=== PATIENT | female | born 1970 | race African-American/Black ===

== ENCOUNTER 2017-07-10 18:33 | Emergency (ER) | payer MEDICAID ==
[2017-07-10 18:53] VITALS: BP 145/81
[2017-07-10] MEDS ORDERED: LORazepam 1 MG Tab PO ONE (18:57)
--- NOTE | 2017-07-10 19:00 | EDM.PDOC ---
ED HPI GENERAL MEDICAL PROBLEM - General Chief Complaint: General Stated Complaint: PT NAUSEA Time Seen by Provider: 07/10/17 18:57 Source of Information: Reports: Patient History Limitations: Reports: No Limitations - History of Present Illness INITIAL COMMENTS - FREE TEXT/NARRATIVE: History of present illness: [47yr old female comes in complaining of feelings of anxiety and feeling overwhelmed to the point of being nauseous. Patient indicates that she had a history of anxiety before her she had a brief run of Zoloft and Klonopin for a period of a few months but she was interested she did not continue to take the meds or pursue further follow-up. Patient indicates that she feels no stress, and or any concerns that would be making her feel this way. Patient denies having any fear and/or issues of abuse. Patient indicates that she feels emotional, overwhelmed and tearful for no apparent reason.] Review of systems: As per history of present illness and below otherwise all systems reviewed and negative. Past medical history: As per history of present illness and as reviewed below otherwise noncontributory. Surgical history: As per history of present illness and as reviewed below otherwise noncontributory. Social history: No reported history of drug or alcohol abuse. Family history: As per history of present illness and as reviewed below otherwise noncontributory. Physical exam: HEENT: Atraumatic, normocephalic, pupils reactive, negative for conjunctival pallor or scleral icterus, mucous membranes moist, throat clear, neck supple, nontender, trachea midline. Lungs: Clear to auscultation, breath sounds equal bilaterally, chest nontender. Heart: S1S2, regular, negative for clicks, rubs, or JVD. Abdomen: Soft, nondistended, nontender. Negative for masses or hepatosplenomegaly. Negative for costovertebral tenderness. Pelvis: Stable nontender. Genitourinary: Deferred. Rectal: Deferred. Extremities: Atraumatic, negative for cords or calf pain. Neurovascular unremarkable. Neuro: Awake, alert, oriented. Cranial nerves II through XII unremarkable. Cerebellum unremarkable. Motor and sensory unremarkable throughout. Exam nonfocal. Discussed with patient the need for follow-up and management by PCP with concerns of depression and/or anxiety. Diagnostics: [] Therapeutics: [Ativan 1 mg] Impression: [Anxiety ] Plan: [Follow-up with PCP] Definitive disposition and diagnosis as appropriate pending reevaluation and review of above. 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 Below) Other OB/BYN History: tubal ligation Psychiatric History: Reports: Anxiety Endocrine/Metabolic History: Reports: Hypoparathyroidism - Infectious Disease History Infectious Disease History: Reports: Chicken Pox Social & Family History - Family History Family Medical History: Noncontributory - Tobacco Use Smoking Status *Q: Never Smoker - Caffeine Use Caffeine Use: Reports: Coffee - Recreational Drug Use Recreational Drug Use: No ED ROS GENERAL - Review of Systems Review Of Systems: See Below (See history of present illness) ED EXAM, GENERAL - Physical Exam Exam: See Below (History of present illness) Course - Vital Signs Last Recorded V/S: Last Vital Signs Temp 36.4 C 07/10/17 18:51 Pulse 78 07/10/17 18:51 Resp 17 07/10/17 18:51 BP 145/81 H 07/10/17 18:51 Pulse Ox 98 07/10/17 18:51 - Orders/Labs/Meds Meds: Medications Discontinued Medications Generic Name Dose Route Start Last Admin Trade Name Freq PRN Reason Stop Dose Admin Lorazepam 1 mg 07/10/17 18:57 07/10/17 19:17 Ativan PO 07/10/17 18:58 1 mg ONETIME ONE Administration Departure - Departure Time of Disposition: 19:27 Disposition: Home, Self-Care 01 Condition: Good Clinical Impression: Anxiety - Discharge Information Referrals: PCP,None [Primary Care Provider] - Forms: ED Department Discharge Additional Instructions: The following information is given to patients seen in the emergency department who are being discharged to home. This information is to outline your options for follow-up care. We provide all patients seen in our emergency department with a follow-up referral. The need for follow-up, as well as the timing and circumstances, are variable depending upon the specifics of your emergency department visit. If you don't have a primary care physician on staff, we will provide you with a referral. We always advise you to contact your personal physician following an emergency department visit to inform them of the circumstance of the visit and for follow-up with them and/or the need for any referrals to a consulting specialist. The emergency department will also refer you to a specialist when appropriate. This referral assures that you have the opportunity for follow-up care with a specialist. All of these measure are taken in an effort to provide you with optimal care, which includes your follow-up. Under all circumstances we always encourage you to contact your private physician who remains a resource for coordinating your care. When calling for follow-up care, please make the office aware that this follow-up is from your recent emergency room visit. If for any reason you are refused follow-up, please contact the [facility] Emergency Department at and asked to speak to the emergency department charge nurse. Take medication as directed Follow-up with PCP once 2 days return to ED as needed as discussed
== END 2017-07-10 19:40 | disposition home or self-care (01) ==
LOC: MW.ED 18:33
DX: F41.9 Anxiety disorder, unspecified (principal); Z88.5 Allergy status to narcotic agent
CPT/HCPCS: 99282; A9270

== ENCOUNTER 2018-10-30 11:36 | Emergency (ER) | payer MEDICAID ==
--- NOTE | 2018-10-30 11:51 | EDM.PDOC ---
ED HPI GENERAL MEDICAL PROBLEM - General Chief Complaint: Genitourinary Problem Stated Complaint: UTI Time Seen by Provider: 10/30/18 11:50 Source of Information: Reports: Patient History Limitations: Reports: No Limitations - History of Present Illness INITIAL COMMENTS - FREE TEXT/NARRATIVE: History of present illness: []She has had 3 day history of burning when she urinates, and discharge. She may have an STD but also also had urinary tract infections that feel the same. Review of systems: As per history of present illness and below otherwise all systems reviewed and negative. Past medical history: As per history of present illness and as reviewed below otherwise noncontributory. Surgical history: As per history of present illness and as reviewed below otherwise noncontributory. Social history: No reported history of drug or alcohol abuse. Family history: As per history of present illness and as reviewed below otherwise noncontributory. Physical exam: General: Well developed, well nourished in NAD HEENT: Atraumatic, normocephalic, pupils reactive, negative for conjunctival pallor or scleral icterus, mucous membranes moist, throat clear, neck supple, nontender, trachea midline. Lungs: Clear to auscultation, breath sounds equal bilaterally, chest nontender. Heart: S1S2, regular, negative for clicks, rubs, or JVD. Abdomen: NABS, Soft, nondistended, nontender. Negative for masses or hepatosplenomegaly. Negative for costovertebral tenderness. Pelvis: Stable nontender. Genitourinary: Deferred. Rectal: Deferred. Extremities: Atraumatic, negative for cords or calf pain. Neurovascular unremarkable. Neuro: Awake, alert, oriented. Cranial nerves II through XII unremarkable. Cerebellum unremarkable. Motor and sensory unremarkable throughout. Exam nonfocal. Skin:warm and dry Diagnostics: UA, hCG, GC, chlamydia culture sent Therapeutics: Ceftriaxone, Zithromax ED Course: Unremarkable Impression: UTIs Prescriptions: Nitrofurantoin Plan: Follow-up women's health. Definitive disposition and diagnosis as appropriate pending reevaluation and review of above. 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 ED EXAM, RENAL/ - Physical Exam Exam: See Below (See history of present illness) Course - Vital Signs Last Recorded V/S: Last Vital Signs Temp 96.7 F 10/30/18 11:50 Pulse 70 10/30/18 11:50 Resp 18 10/30/18 11:50 BP 147/89 H 10/30/18 11:50 Pulse Ox 99 10/30/18 11:50 - Orders/Labs/Meds Orders: Active Orders 24 hr Category Date Time Status CHLAMYDIA AND GONORRHEA BY TMA Stat Lab 10/30/18 12:17 Received Labs: Laboratory Tests 10/30/18 10/30/18 Range/Units 12:06 12:06 Urine Color YELLOW Urine Appearance SLT CLOUDY Urine pH 6.0 (5.0-8.0) Ur Specific [place] 1.010 (1.001-1.035) Urine Protein 30 H (NEGATIVE) mg/dL Urine Glucose (UA) NEGATIVE (NEGATIVE) mg/dL Urine Ketones NEGATIVE (NEGATIVE) mg/dL Urine Occult Blood LARGE H (NEGATIVE) Urine Nitrite NEGATIVE (NEGATIVE) Urine Bilirubin NEGATIVE (NEGATIVE) Urine Urobilinogen 0.2 (<2.0) EU/dL Ur Leukocyte Esterase LARGE H (NEGATIVE) Urine RBC 40-60 (0-2/HPF) Urine WBC 50-75 (0-5/HPF) Ur Epithelial Cells FEW (NONE-FEW) Urine Bacteria FEW (NEGATIVE) Urine HCG, Qual NEGATIVE (NEGATIVE) Meds: Medications Discontinued Medications Generic Name Dose Route Start Last Admin Trade Name Freq PRN Reason Stop Dose Admin Azithromycin 1,000 mg 10/30/18 12:12 Zithromax PO 10/30/18 12:13 Q24H ONE Ceftriaxone Sodium 500 mg/ 1 mls @ 1 mls/sec 10/30/18 12:12 Lidocaine HCl IM 10/30/18 12:13 ONETIME ONE Departure - Departure Time of Disposition: 12:39 Disposition: Home, Self-Care 01 Condition: Good Clinical Impression: UTI (urinary tract infection) Qualifiers: Urinary tract infection type: site unspecified Hematuria presence: with hematuria Qualified Code(s): N39.0 - Urinary tract infection, site not specified - Discharge Information *PRESCRIPTION DRUG MONITORING PROGRAM REVIEWED*: No *COPY OF PRESCRIPTION DRUG MONITORING REPORT IN PATIENT TED: No Prescriptions: Nitrofurantoin Macrocrystal [Macrodantin] 100 mg PO BID #14 capsule Referrals: PCP,Unknown [Primary Care Provider] - Forms: ED Department Discharge Additional Instructions: The following information is given to patients seen in the emergency department who are being discharged to home. This information is to outline your options for follow-up care. We provide all patients seen in our emergency department with a follow-up referral. The need for follow-up, as well as the timing and circumstances, are variable depending upon the specifics of your emergency department visit. If you don't have a primary care physician on staff, we will provide you with a referral. We always advise you to contact your personal physician following an emergency department visit to inform them of the circumstance of the visit and for follow-up with them and/or the need for any referrals to a consulting specialist. The emergency department will also refer you to a specialist when appropriate. This referral assures that you have the opportunity for follow-up care with a specialist. All of these measure are taken in an effort to provide you with optimal care, which includes your follow-up. Under all circumstances we always encourage you to contact your private physician who remains a resource for coordinating your care. When calling for follow-up care, please make the office aware that this follow-up is from your recent emergency room visit. If for any reason you are refused follow-up, please contact the [facility] Emergency Department at and asked to speak to the emergency department charge nurse. Take meds as directed, increase fluids, follow-up with women's health. [facility] Primary Care - Women's Health [address] [place] [id number] - My Orders Last 24 Hours: My Active Orders 10/30/18 12:17 CHLAMYDIA AND GONORRHEA BY TMA Stat - Assessment/Plan Last 24 Hours: My Active Orders 10/30/18 12:17 CHLAMYDIA AND GONORRHEA BY TMA Stat
[2018-10-30 11:52] VITALS: BP 147/89
[2018-10-30] MEDS ORDERED: Azithromycin 250 MG Tab PO ONE (12:12)
[2018-10-30] MEDS ORDERED: cefTRIAXone 500 MG in Lidocaine 1% 1 ML IM ONE (12:12)
== END 2018-10-30 12:57 | disposition home or self-care (01) ==
LOC: MW.ED 11:36
DX: N39.0 Urinary tract infection, site not specified (principal); Z88.5 Allergy status to narcotic agent; Z79.899 Other long term (current) drug therapy
CPT/HCPCS: 81001; 81025; 87491; 87591; 96372; 99283; A9270; J0696

== ENCOUNTER 2018-12-31 18:00 | Emergency (ER) | payer MEDICAID ==
--- NOTE | 2018-12-31 18:39 | EDM.PDOC ---
ED HPI GENERAL MEDICAL PROBLEM - General Chief Complaint: Genitourinary Problem Stated Complaint: FREQUENT URINATION Time Seen by Provider: 12/31/18 18:17 Source of Information: Reports: Patient History Limitations: Reports: No Limitations - History of Present Illness INITIAL COMMENTS - FREE TEXT/NARRATIVE: HISTORY AND PHYSICAL: History of present illness: Patient is a 48-year-old female presents to the ED today with concern of burning with urination, urinary frequency, and vaginal discharge x 4 days. Patient states she is concerned about sexual transmitted infections as she has been having unprotected sex with a recent partner. Patient states that the symptoms she expresses have developed since having intercourse with him. Patient states that he is from [place] and he has not made a real clear on his sexual history with her. Patient states she is also noticed weird rashes out of appeared all over her body. She states the rashes are gone today but that they have propped up in different areas she thought this was unusual. Patient states that a few days ago she also had a fever of 100 but has not had a fever since. Patient is concerned because she says it does burn when she urinates. She has not taken anything for her pain or discomfort. Patient denies chest pain, shortness of breath, or cough. Denies headache, neck stiff ness, change in vision, syncope, or near syncope. Denies nausea, vomiting , abdominal pain, diarrhea, constipation. Has not noted any blood in urine or stool. Patient has been eating and drinking appropriately. Patient denies any health history. Review of systems: As per history of present illness and below otherwise all systems reviewed and negative. Past medical history: As per history of present illness and as reviewed below otherwise noncontributory. Surgical history: As per history of present illness and as reviewed below otherwise noncontributory. Social history: See social history for further information Family history: As per history of present illness and as reviewed below otherwise noncontributory. Physical exam: General: Patient is alert, oriented, and in no acute distress. Patient sitting comfortably on exam table. HEENT: Atraumatic, normocephalic, pupils equal and reactive bilaterally, negative for conjunctival pallor or scleral icterus, mucous membranes moist, TMs normal bilaterally, throat clear, neck supple, nontender, trachea midline. No drooling or trismus noted. No meningeal signs. No hot potato voice noted. Lungs: Clear to auscultation, breath sounds equal bilaterally, chest nontender. Heart: S1S2, regular rate and rhythm without overt murmur Abdomen: Soft, nondistended, nontender. Negative for masses or hepatosplenomegaly. Negative for costovertebral tenderness. Pelvis: Stable nontender. Genitourinary: External genitalia grossly unremarkable. Vaginal vault does have a moderate amount of whitish discharge. Negative cervical motion tenderness. Rectal: Deferred. Skin: Intact, warm, dry. No lesions or rashes noted. Extremities: Atraumatic, negative for cords or calf pain. Neurovascular unremarkable. Neuro: Awake, alert, oriented. Cranial nerves II through XII unremarkable. Cerebellum unremarkable. Motor and sensory unremarkable throughout. Exam nonfocal. Notes: Discussed with patient that if she desires a full STD workup to see her primary care provider or [facility] for this testing. Also discussed the importance refraining from intercourse with concern partner until all testing has returned and wall partner has also been treated. Discussed the importance for follow-up with the primary care provider. Supportive care measures were reviewed and discussed. Voices understanding and is agreeable to plan of care. Denies any further questions or concerns at this time. Diagnostics: UA, gonorrhea and chlamydia, RPR, affirm, Therapeutics: Rocephin Prescription: Azithromycin, Macrobid, Metronidazole suppository Impression: Urinary Tract Infection Bacterial Vaginosis High risk heterosexual behavior Plan: 1. Take medication as prescribed. You can alternate ibuprofen and Tylenol as directed for pain and discomfort. 2. Follow-up with your primary care provider as discussed. 3. Return to the ED as needed and as discussed. Definitive disposition and diagnosis as appropriate pending reevaluation and review of above. urinary Pain Score (Numeric/FACES): 8 - Related Data Allergies Allergy/AdvReac Type Severity Reaction Status Date / Time codeine Allergy Rash Verified 12/31/18 18:21 Home Meds: Home Meds Levothyroxine [Synthroid] 50 mcg PO ACBREAKFAST 06/23/16 [History] Azithromycin 1 gm PO ONETIME 1 Days #1 powder 12/31/18 [Rx] Nitrofurantoin Monohyd/M-Cryst [Macrobid 100 mg Capsule] 100 mg PO BID 5 Days # 10 capsule 12/31/18 [Rx] Past Medical History - Past Health History Medical/Surgical History: Denies Medical/Surgical History Cardiovascular History: Reports: None Respiratory History: Reports: None Gastrointestinal History: Reports: Other (See Below) Other Gastrointestinal History: gallstones 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 Neurological History: Reports: None Psychiatric History: Reports: Anxiety Endocrine/Metabolic History: Reports: Hypoparathyroidism - Infectious Disease History Infectious Disease History: Reports: Chicken Pox - Past Surgical History GI Surgical History: Reports: Cholecystectomy Social & Family History - Family History Family Medical History: Noncontributory - Tobacco Use Smoking Status *Q: Never Smoker - Caffeine Use Caffeine Use: Reports: Coffee - Recreational Drug Use Recreational Drug Use: No ED ROS GENERAL - Review of Systems Review Of Systems: ROS reveals no pertinent complaints other than HPI. ED EXAM, RENAL/ - Physical Exam Exam: See Below (See dictation) Course - Vital Signs Last Recorded V/S: Last Vital Signs Temp 36.1 C 12/31/18 18:22 Pulse 66 12/31/18 21:27 Resp 18 12/31/18 21:27 BP 155/88 H 12/31/18 21:27 Pulse Ox 98 12/31/18 21:27 - Orders/Labs/Meds Orders: Active Orders 24 hr Category Date Time Status CHLAMYDIA AND GONORRHEA BY TMA Stat Lab 12/31/18 18:27 Received CHLAMYDIA AND GONORRHEA BY TMA Stat Lab 12/31/18 19:00 Received CULTURE URINE [RM] Stat Lab 12/31/18 18:27 Received RAPID PLASMA REAGIN, QUANT [REF] Stat Lab 12/31/18 18:58 Received Labs: Laboratory Tests 12/31/18 12/31/18 Range/Units 18:27 19:00 Urine Color YELLOW Urine Appearance SLT CLOUDY Urine pH 6.0 (5.0-8.0) Ur Specific [place] <= 1.005 (1.001-1.035) Urine Protein NEGATIVE (NEGATIVE) mg/dL Urine Glucose (UA) NEGATIVE (NEGATIVE) mg/dL Urine Ketones NEGATIVE (NEGATIVE) mg/dL Urine Occult Blood SMALL H (NEGATIVE) Urine Nitrite NEGATIVE (NEGATIVE) Urine Bilirubin NEGATIVE (NEGATIVE) Urine Urobilinogen 0.2 (<2.0) EU/dL Ur Leukocyte Esterase SMALL H (NEGATIVE) Urine RBC 0-2 (0-2/HPF) Urine WBC 8-10 (0-5/HPF) Ur Epithelial Cells FEW (NONE-FEW) Urine Bacteria RARE (NEGATIVE) Brianda species DNA NEGATIVE (NEGATIVE) Gardnerella DNA Probe POSITIVE H (NEGATIVE) Trichomonas DNA Probe NEGATIVE (NEGATIVE) Meds: Medications Discontinued Medications Generic Name Dose Route Start Last Admin Trade Name Freq PRN Reason Stop Dose Admin Ceftriaxone Sodium 250 mg/ 1 mls @ 1 mls/sec 12/31/18 19:42 12/31/18 20:02 Lidocaine HCl IM 12/31/18 19:43 1 mls/sec ONETIME ONE Administration Departure - Departure Time of Disposition: 21:11 Disposition: Home, Self-Care 01 Clinical Impression: Bacterial vaginosis Urinary tract infection Qualifiers: Urinary tract infection type: site unspecified Hematuria presence: with hematuria Qualified Code(s): N39.0 - Urinary tract infection, site not specified High risk sexual behavior Qualifiers: High risk sexual behavior type: heterosexual Qualified Code(s): Z72.51 - High risk heterosexual behavior - Discharge Information Prescriptions: Azithromycin 1 gm PO ONETIME 1 Days #1 powder Nitrofurantoin Monohyd/M-Cryst [Macrobid 100 mg Capsule] 100 mg PO BID 5 Days # 10 capsule Instructions: Urinary Tract Infection, Adult, [id number], Bacterial Vaginosis , [id number], Safe Sex Referrals: Nazia Wallace NP [Primary Care Provider] - Forms: ED Department Discharge Additional Instructions: The following information is given to patients seen in the emergency department who are being discharged to home. This information is to outline your options for follow-up care. We provide all patients seen in our emergency department with a follow-up referral. The need for follow-up, as well as the timing and circumstances, are variable depending upon the specifics of your emergency department visit. If you don't have a primary care physician on staff, we will provide you with a referral. We always advise you to contact your personal physician following an emergency department visit to inform them of the circumstance of the visit and for follow-up with them and/or the need for any referrals to a consulting specialist. The emergency department will also refer you to a specialist when appropriate. This referral assures that you have the opportunity for follow-up care with a specialist. All of these measure are taken in an effort to provide you with optimal care, which includes your follow-up. Under all circumstances we always encourage you to contact your private physician who remains a resource for coordinating your care. When calling for follow-up care, please make the office aware that this follow-up is from your recent emergency room visit. If for any reason you are refused follow-up, please contact the [facility] Emergency Department at and asked to speak to the emergency department charge nurse. [facility] Primary Care [address] [place] [phone] [facility] [address] [place] [phone] 1. Take medication as prescribed. You can alternate ibuprofen and Tylenol as directed for pain and discomfort. 2. Follow-up with your primary care provider as discussed. 3. Return to the ED as needed and as discussed. - My Orders Last 24 Hours: My Active Orders 12/31/18 18:27 CHLAMYDIA AND GONORRHEA BY TMA Stat CULTURE URINE [RM] Stat 12/31/18 18:58 RAPID PLASMA REAGIN, QUANT [REF] Stat 12/31/18 19:00 CHLAMYDIA AND GONORRHEA BY TMA Stat - Assessment/Plan Last 24 Hours: My Active Orders 12/31/18 18:27 CHLAMYDIA AND GONORRHEA BY TMA Stat CULTURE URINE [RM] Stat 12/31/18 18:58 RAPID PLASMA REAGIN, QUANT [REF] Stat 12/31/18 19:00 CHLAMYDIA AND GONORRHEA BY TMA Stat
[2018-12-31] MEDS ORDERED: cefTRIAXone 250 MG in Lidocaine 1% 1 ML IM ONE (19:42)
[2018-12-31 21:27] VITALS: BP 155/88
== END 2018-12-31 21:28 | disposition home or self-care (01) ==
LOC: MW.ED 18:00
DX: N76.0 Acute vaginitis (principal); N39.0 Urinary tract infection, site not specified; E20.9 Hypoparathyroidism, unspecified; F41.9 Anxiety disorder, unspecified; Z72.51 High risk heterosexual behavior; Z88.5 Allergy status to narcotic agent; Z79.899 Other long term (current) drug therapy
CPT/HCPCS: 81001; 86593; 87086; 87480; 87491; 87510; 87591; 87660; 96372; 99283; J0696; J2001

== ENCOUNTER 2019-03-01 15:57 | Emergency (ER) | payer MEDICAID ==
--- NOTE | 2019-03-01 16:06 | EDM.PDOC ---
ED HPI GENERAL MEDICAL PROBLEM - General Chief Complaint: Genitourinary Problem Stated Complaint: ITCHING AN PAIN LWR PRT Time Seen by Provider: 03/01/19 15:59 Source of Information: Reports: Patient History Limitations: Reports: No Limitations - History of Present Illness INITIAL COMMENTS - FREE TEXT/NARRATIVE: HISTORY AND PHYSICAL: History of present illness: Patient is a 49-year-old female who presents to the emergency room with complaints of vaginal discharge and external irritation. Patient was seen in the ER on 12/2018 for these symptoms. Patient did test positive for Gardnerella and UTI. Her gonorrhea and chlamydia send out screenings were negative. She was treated with azithromycin and Rocephin prophylactically. 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 She thought that the antibiotic she received while she was here in the emergency room would treat her symptoms. Since her last ER visit she states that the vaginal discharge has not improved. Pain to the external genitalia when close are pressed up tight against her. Also experiencing some pain with sexual intercourse. She states she is in a monogamous relationship and has had no new partner since her last evaluation. Patient denies any fever, chills, headache, change in vision, syncope or near syncope. Denies any chest pain, back pain, shortness of breath or cough. Denies any abdominal pain, nausea, vomiting, diarrhea, constipation or dysuria. Has not noted any blood in urine or stool. Patient has been eating and drinking appropriately. Review of systems: As per history of present illness and below otherwise all systems reviewed and negative. Past medical history: As per history of present illness and as reviewed below otherwise noncontributory. Surgical history: As per history of present illness and as reviewed below otherwise noncontributory. Social history: See social history for further information Family history: As per history of present illness and as reviewed below otherwise noncontributory. Physical exam: General: Well-developed and well-nourished 49-year-old -[place] female. Alert and oriented. Nontoxic appearing and in no acute distress. HEENT: Atraumatic, normocephalic, pupils equal and reactive bilaterally, negative for conjunctival pallor or scleral icterus, mucous membranes moist, TMs normal bilaterally, throat clear, neck supple, nontender, trachea midline. No drooling or trismus noted. No meningeal signs. No hot potato voice noted. Lungs: Clear to auscultation, breath sounds equal bilaterally, chest nontender. Heart: S1S2, regular rate and rhythm without overt murmur Abdomen: Soft, nondistended, nontender. Negative for masses or hepatosplenomegaly. Negative for costovertebral tenderness. Pelvis: Stable nontender. Genitourinary: This was done with consent and a travel rn at the bedside. Patient does have discomfort with speculum insertion. Thin milky white discharge noted in the vaginal vault. No cervical motion tenderness. Rectal: Deferred. Skin: Intact, warm, dry. No lesions or rashes noted. Extremities: Atraumatic, moves all extremities per self without difficulty or deficits, negative for cords or calf pain. Neurovascular unremarkable. Neuro: Awake, alert, oriented. Cranial nerves II through XII unremarkable. Cerebellum unremarkable. Motor and sensory unremarkable throughout. Exam nonfocal. Notes: Patient recently did have gonorrhea, chlamydia, Trichomonas, BV and yeast screenings completed. We discussed repeating any of these testing. Will repeat UA. After talking with the patient it sounds like she did not take the Flagyl cream as directed. I'll treat with oral Flagyl and Diflucan. Urinalysis shows no UTI at this time. Supportive care measures were reviewed and discussed. Voices understanding and is agreeable to plan of care. Denies any further questions or concerns at this time. Diagnostics: UA Therapeutics: None Prescription: Flagyl Diflucan Impression: Bacterial vaginosis Plan: 1. No sexual intercourse while taking the Flagyl over the next 7 days. 2. Diflucan as directed. You may get [id number] Monistat to apply externally for comfort 3. Follow-up with an HYDRAULIC JACK ADJUSTER as we discussed. Return to the ED as needed and as discussed. Definitive disposition and diagnosis as appropriate pending reevaluation and review of above. - Related Data Allergies Allergy/AdvReac Type Severity Reaction Status Date / Time codeine Allergy Rash Verified 03/01/19 16:05 Home Meds: Home Meds Levothyroxine [Synthroid] 50 mcg PO ACBREAKFAST 06/23/16 [History] Past Medical History - Past Health History Medical/Surgical History: Denies Medical/Surgical History Cardiovascular History: Reports: None Respiratory History: Reports: None Gastrointestinal History: Reports: Other (See Below) Other Gastrointestinal History: gallstones HYDRAULIC JACK ADJUSTER History: Reports: Other (See Below) Other HYDRAULIC JACK ADJUSTER History: tubal ligation Neurological History: Reports: None Psychiatric History: Reports: Anxiety Endocrine/Metabolic History: Reports: Hypoparathyroidism - Infectious Disease History Infectious Disease History: Reports: Chicken Pox - Past Surgical History GI Surgical History: Reports: Cholecystectomy Social & Family History - Family History Family Medical History: Noncontributory - Caffeine Use Caffeine Use: Reports: Coffee ED ROS GENERAL - Review of Systems Review Of Systems: ROS reveals no pertinent complaints other than HPI. ED EXAM, GENERAL - Physical Exam Exam: See Below (See dictation) Course - Vital Signs Last Recorded V/S: Last Vital Signs Temp 96.3 F 03/01/19 16:06 Pulse 84 03/01/19 16:06 Resp 18 03/01/19 16:06 BP 148/85 H 03/01/19 16:06 Pulse Ox 98 03/01/19 16:06 - Orders/Labs/Meds Labs: Laboratory Tests 03/01/19 Range/Units 16:10 Urine Color YELLOW Urine Appearance CLEAR Urine pH 6.0 (5.0-8.0) Ur Specific Commerce 1.010 (1.001-1.035) Urine Protein NEGATIVE (NEGATIVE) mg/dL Urine Glucose (UA) NEGATIVE (NEGATIVE) mg/dL Urine Ketones NEGATIVE (NEGATIVE) mg/dL Urine Occult Blood NEGATIVE (NEGATIVE) Urine Nitrite NEGATIVE (NEGATIVE) Urine Bilirubin NEGATIVE (NEGATIVE) Urine Urobilinogen 0.2 (<2.0) EU/dL Ur Leukocyte Esterase NEGATIVE (NEGATIVE) Departure - Departure Time of Disposition: 16:39 Disposition: Home, Self-Care 01 Clinical Impression: Bacterial vaginosis - Discharge Information Instructions: Bacterial Vaginosis, [id number] Referrals: PCP,None [Primary Care Provider] - Forms: ED Department Discharge Additional Instructions: The following information is given to patients seen in the emergency department who are being discharged to home. This information is to outline your options for follow-up care. We provide all patients seen in our emergency department with a follow-up referral. The need for follow-up, as well as the timing and circumstances, are variable depending upon the specifics of your emergency department visit. If you don't have a primary care physician on staff, we will provide you with a referral. We always advise you to contact your personal physician following an emergency department visit to inform them of the circumstance of the visit and for follow-up with them and/or the need for any referrals to a consulting specialist. The emergency department will also refer you to a specialist when appropriate. This referral assures that you have the opportunity for follow-up care with a specialist. All of these measure are taken in an effort to provide you with optimal care, which includes your follow-up. Under all circumstances we always encourage you to contact your private physician who remains a resource for coordinating your care. When calling for follow-up care, please make the office aware that this follow-up is from your recent emergency room visit. If for any reason you are refused follow-up, please contact the [facility] Emergency Department at and asked to speak to the emergency department charge nurse. [facility] [address] [place] [id number] [place] [address] 1. No sexual intercourse while taking the Flagyl over the next 7 days. 2. Diflucan as directed. You may get [id number] Monistat to apply externally for comfort 3. Follow-up with an HYDRAULIC JACK ADJUSTER as we discussed. Return to the ED as needed and as discussed.
[2019-03-01 16:10] VITALS: BP 148/85
== END 2019-03-01 16:45 | disposition home or self-care (01) ==
LOC: MW.ED 15:57
DX: N76.0 Acute vaginitis (principal); E20.9 Hypoparathyroidism, unspecified; Z79.899 Other long term (current) drug therapy; Z88.5 Allergy status to narcotic agent
CPT/HCPCS: 81003; 99283

== ENCOUNTER 2019-03-05 08:05 | Emergency (ER) | payer MEDICAID ==
--- NOTE | 2019-03-05 08:19 | EDM.PDOC ---
ED HPI GENERAL MEDICAL PROBLEM - General Chief Complaint: Gastrointestinal Problem Stated Complaint: ACID REFLEX Time Seen by Provider: 03/05/19 08:18 Source of Information: Reports: Patient History Limitations: Reports: No Limitations - History of Present Illness INITIAL COMMENTS - FREE TEXT/NARRATIVE: History of present illness: []Patient has had burning in her throat and epigastric pain intermittently for the last 9 years with worsening in the last 2-3 weeks. She tried a two-week course of omeprazole and has been taking Tums without relief. Denies any vomiting but is nauseated. She denies any blood in her stools. Patient's had a cholecystectomy in the past. Review of systems: As per history of present illness and below otherwise all systems reviewed and negative. Past medical history: As per history of present illness and as reviewed below otherwise noncontributory. Surgical history: As per history of present illness and as reviewed below otherwise noncontributory. Social history: No reported history of drug or alcohol abuse. Family history: As per history of present illness and as reviewed below otherwise noncontributory. Physical exam: General: Well developed, well nourished in NAD HEENT: Atraumatic, normocephalic, pupils reactive, negative for conjunctival pallor or scleral icterus, mucous membranes moist, throat clear, neck supple, nontender, trachea midline. Lungs: Clear to auscultation, breath sounds equal bilaterally, chest nontender. Heart: S1S2, regular, negative for clicks, rubs, or JVD. Abdomen: NABS, Soft, nondistended, nontender, no rebound or guarding. Negative for masses or hepatosplenomegaly. Negative for costovertebral tenderness. Pelvis: Stable nontender. Genitourinary: Deferred. Rectal: Deferred. Extremities: Atraumatic, negative for cords or calf pain. Neurovascular unremarkable. Neuro: Awake, alert, oriented. Cranial nerves II through XII unremarkable. Cerebellum unremarkable. Motor and sensory unremarkable throughout. Exam nonfocal. Skin:warm and dry Diagnostics: CBC, chemistry, lipase, hCG, H pylori is positive Therapeutics: None ED Course: Stable Impression: H. pylori positive gastric reflux Prescriptions: prev PAC Plan: Take meds as directed, follow up with your primary care physician, return to ER if symptoms worsen or change. Definitive disposition and diagnosis as appropriate pending reevaluation and review of above. Throat Pain Score (Numeric/FACES): 9 - Related Data Allergies Allergy/AdvReac Type Severity Reaction Status Date / Time codeine Allergy Rash Verified 03/05/19 08:22 Home Meds: Home Meds Levothyroxine [Synthroid] 50 mcg PO ACBREAKFAST 06/23/16 [History] Lansoprazole/Amoxiciln/Clarith [Prevpac Patient Pack] 1 each PO BID #1 combo..pkg 03/05/19 [Rx] Past Medical History - Past Health History Medical/Surgical History: Denies Medical/Surgical History HEENT History: Reports: None Cardiovascular History: Reports: None Respiratory History: Reports: None Gastrointestinal History: Reports: Other (See Below) Other Gastrointestinal History: gallstones Genitourinary History: Reports: None 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 (See Below) Other SUPERVISOR TANK HOUSE History: tubal ligation Musculoskeletal History: Reports: None Neurological History: Reports: None Psychiatric History: Reports: Anxiety Endocrine/Metabolic History: Reports: Hypoparathyroidism Hematologic History: Reports: None Immunologic History: Reports: None Oncologic (Cancer) History: Reports: None Dermatologic History: Reports: None - Infectious Disease History Infectious Disease History: Reports: Chicken Pox - Past Surgical History GI Surgical History: Reports: Cholecystectomy Social & Family History - Family History Family Medical History: Noncontributory - Caffeine Use Caffeine Use: Reports: Coffee ED ROS GENERAL - Review of Systems Review Of Systems: ROS reveals no pertinent complaints other than HPI. ED EXAM, GI/ABD - Physical Exam Exam: See Below (See history of present illness) Course - Vital Signs Last Recorded V/S: Last Vital Signs Temp 98.0 F 03/05/19 08:18 Pulse 87 03/05/19 08:18 Resp 18 03/05/19 08:18 BP 143/87 H 03/05/19 08:18 Pulse Ox 94 L 03/05/19 08:18 - Orders/Labs/Meds Labs: Laboratory Tests 03/05/19 03/05/19 03/05/19 Range/Units 08:34 08:34 08:34 WBC 7.38 (4.0-11.0) K/uL RBC 4.74 (4.30-5.90) M/uL Hgb 11.7 L (12.0-16.0) g/dL Hct 37.1 (36.0-46.0) % MCV 78.3 L (80.0-98.0) fL MCH 24.7 L (27.0-32.0) pg MCHC 31.5 (31.0-37.0) g/dL RDW Std Deviation 42.1 (28.0-62.0) fl RDW Coeff of Brionna 15 (11.0-15.0) % Plt Count 342 (150-400) K/uL MPV 9.60 (7.40-12.00) fL Neut % (Auto) 53.8 (48.0-80.0) % Lymph % (Auto) 36.6 (16.0-40.0) % [place] % (Auto) 6.8 (0.0-15.0) % Eos % (Auto) 2.4 (0.0-7.0) % Baso % (Auto) 0.4 (0.0-1.5) % Neut # (Auto) 4.0 (1.4-5.7) K/uL Lymph # (Auto) 2.7 H (0.6-2.4) K/uL [place] # (Auto) 0.5 (0.0-0.8) K/uL Eos # (Auto) 0.2 (0.0-0.7) K/uL Baso # (Auto) 0.0 (0.0-0.1) K/uL Nucleated RBC % 0.0 /100WBC Nucleated RBCs # 0 K/uL Sodium 136 (136-145) mmol/L Potassium 3.9 (3.5-5.1) mmol/L Chloride 102 (98-107) mmol/L Carbon Dioxide 27.2 (21.0-32.0) mmol/L BUN 12 (7.0-18.0) mg/dL Creatinine 0.8 (0.6-1.0) mg/dL Est Cr Clr Drug Dosing 74.26 mL/min Estimated GFR (MDRD) > 60.0 ml/min Glucose 102 (74-106) mg/dL Calcium 9.4 (8.5-10.1) mg/dL Total Bilirubin 0.4 (0.2-1.0) mg/dL AST 17 (15-37) IU/L ALT 12 L (14-63) IU/L Alkaline Phosphatase 100 (46-116) U/L Total Protein 7.3 (6.4-8.2) g/dL Albumin 3.6 (3.4-5.0) g/dL Globulin 3.7 (2.6-4.0) g/dL Albumin/Globulin Ratio 1.0 (0.9-1.6) Lipase 65 L (73-393) U/L HCG, Qual NEGATIVE (NEG) H. pylori IgG Antibody POSITIVE H (NEG) Departure - Departure Time of Disposition: 10:06 Disposition: Home, Self-Care 01 Condition: Good Clinical Impression: Positive H. pylori test, GERD (gastroesophageal reflux disease) - Discharge Information *PRESCRIPTION DRUG MONITORING PROGRAM REVIEWED*: No *COPY OF PRESCRIPTION DRUG MONITORING REPORT IN PATIENT TED: No Prescriptions: Lansoprazole/Amoxiciln/Clarith [Prevpac Patient Pack] 1 each PO BID #1 combo..pkg Referrals: Nina Molina DO [Primary Care Provider] - Forms: ED Department Discharge Additional Instructions: The following information is given to patients seen in the emergency department who are being discharged to home. This information is to outline your options for follow-up care. We provide all patients seen in our emergency department with a follow-up referral. The need for follow-up, as well as the timing and circumstances, are variable depending upon the specifics of your emergency department visit. If you don't have a primary care physician on staff, we will provide you with a referral. We always advise you to contact your personal physician following an emergency department visit to inform them of the circumstance of the visit and for follow-up with them and/or the need for any referrals to a consulting specialist. The emergency department will also refer you to a specialist when appropriate. This referral assures that you have the opportunity for follow-up care with a specialist. All of these measure are taken in an effort to provide you with optimal care, which includes your follow-up. Under all circumstances we always encourage you to contact your private physician who remains a resource for coordinating your care. When calling for follow-up care, please make the office aware that this follow-up is from your recent emergency room visit. If for any reason you are refused follow-up, please contact the [facility] Emergency Department at and asked to speak to the emergency department charge nurse. Take meds as directed, follow up with your primary care physician, return to ER if symptoms worsen or change. [facility] [address] [place] [id number]
[2019-03-05 09:09] LABS: CHLORIDE,CL 102 mmol/L (98-107); SODIUM,NA 136 mmol/L (136-145)
[2019-03-05 11:27] VITALS: BP 152/87
== END 2019-03-05 10:20 | disposition home or self-care (01) ==
LOC: MW.ED 08:05
DX: K21.9 Gastro-esophageal reflux disease without esophagitis (principal); B96.81 Helicobacter pylori [H. pylori] as the cause of diseases classified elsewhere; Z88.5 Allergy status to narcotic agent; Z79.899 Other long term (current) drug therapy
CPT/HCPCS: 36415; 80053; 83690; 84703; 85025; 86677; 99283

== ENCOUNTER 2019-04-06 15:38 | Emergency (ER) | payer MEDICAID ==
--- NOTE | 2019-04-06 16:01 | EDM.PDOC ---
ED HPI GENERAL MEDICAL PROBLEM - General Chief Complaint: Lower Extremity Injury/Pain Stated Complaint: SHOOTING PAINS FROM FEET UP TO LEGS, THROBBING Time Seen by Provider: 04/06/19 15:53 - History of Present Illness INITIAL COMMENTS - FREE TEXT/NARRATIVE: HISTORY AND PHYSICAL: History of present illness: Patient's 49-year-old black female history of chronic bilateral foot pain and was diagnosed in the past with plantar fasciitis who presents with a concern of pain to her feet bilaterally. No fever chills nausea vomiting trauma or other concern Review of systems: As per history of present illness and below otherwise all systems reviewed and negative. Past medical history: As per history of present illness and as reviewed below otherwise noncontributory. Surgical history: As per history of present illness and as reviewed below otherwise noncontributory. Social history: No reported history of drug or alcohol abuse. Family history: As per history of present illness and as reviewed below otherwise noncontributory. Physical exam: HEENT: Atraumatic, normocephalic, pupils reactive, negative for conjunctival pallor or scleral icterus, mucous membranes moist, throat clear, neck supple, nontender, trachea midline. Lungs: Clear to auscultation, breath sounds equal bilaterally, chest nontender. Heart: S1S2, regular, negative for clicks, rubs, or JVD. Abdomen: Soft, nondistended, nontender. Negative for masses or hepatosplenomegaly. Negative for costovertebral tenderness. Pelvis: Stable nontender. Genitourinary: Deferred. Rectal: Deferred. Extremities: Patient has tenderness in the region of her plantar arch bilaterally to palpation no crepitation no induration neurovascular exams unremarkable Neuro: Awake, alert, oriented. Cranial nerves II through XII unremarkable. Cerebellum unremarkable. Motor and sensory unremarkable throughout. Exam nonfocal. Diagnostics: None Therapeutics: None Impression: #1 bilateral foot pain (chronic) #2 plantar fasciitis Definitive disposition and diagnosis as appropriate pending reevaluation and review of above. 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 (See Below) Other BULLET SLUGS INSPECTOR History: tubal ligation Musculoskeletal History: Reports: None Neurological History: Reports: None Psychiatric History: Reports: Anxiety Endocrine/Metabolic History: Reports: Hypoparathyroidism Hematologic History: Reports: None Immunologic History: Reports: None Oncologic (Cancer) History: Reports: None Dermatologic History: Reports: None - Infectious Disease History Infectious Disease History: Reports: Chicken Pox - Past Surgical History Head Surgeries/Procedures: Reports: None GI Surgical History: Reports: Cholecystectomy Social & Family History - Family History Family Medical History: Noncontributory - Tobacco Use Smoking Status *Q: Never Smoker Second Hand Smoke Exposure: No - Caffeine Use Caffeine Use: Reports: Coffee, Soda - Recreational Drug Use Recreational Drug Use: No Review of Systems - Review of Systems Review Of Systems: ROS reveals no pertinent complaints other than HPI. ED EXAM, GENERAL - Physical Exam Exam: See Below (See dictation) Course - Vital Signs Last Recorded V/S: Last Vital Signs Temp 35.8 C 04/06/19 15:53 Pulse 95 04/06/19 15:53 Resp 18 04/06/19 15:53 BP 116/80 04/06/19 15:53 Pulse Ox 98 04/06/19 15:53 Departure - Departure Time of Disposition: 16:00 Disposition: Home, Self-Care 01 Condition: Good Clinical Impression: Foot pain, bilateral, Plantar fasciitis - Discharge Information Referrals: Nina Molina DO [Primary Care Provider] - Additional Instructions: The following information is given to patients seen in the emergency department who are being discharged to home. This information is to outline your options for follow-up care. We provide all patients seen in our emergency department with a follow-up referral. The need for follow-up, as well as the timing and circumstances, are variable depending upon the specifics of your emergency department visit. If you don't have a primary care physician on staff, we will provide you with a referral. We always advise you to contact your personal physician following an emergency department visit to inform them of the circumstance of the visit and for follow-up with them and/or the need for any referrals to a consulting specialist. The emergency department will also refer you to a specialist when appropriate. This referral assures that you have the opportunity for followup care with a specialist. All of these measure are taken in an effort to provide you with optimal care, which includes your followup. Under all circumstances we always encourage you to contact your private physician who remains a resource for coordinating your care. When calling for followup care, please make the office aware that this follow-up is from your recent emergency room visit. If for any reason you are refused follow-up, please contact the [facility] emergency department at and asked to speak to the emergency department charge nurse. Jonh Huang [facility] - Podiatry [address] [place] [phone] Fax: [phone] Full tenderness prescribed follow-up podiatry above call to schedule appointment return as needed as discussed
[2019-04-06 16:58] VITALS: BP 150/87
== END 2019-04-06 16:58 | disposition home or self-care (01) ==
LOC: MW.ED 15:38
DX: M72.2 Plantar fascial fibromatosis (principal); Z88.5 Allergy status to narcotic agent; Z79.899 Other long term (current) drug therapy
CPT/HCPCS: 99283

== ENCOUNTER 2020-03-19 14:02 | Emergency (ER) | payer MEDICAID ==
[2020-03-19 14:16] VITALS: BP 145/85; PULSE 75
--- NOTE | 2020-03-19 14:44 | EDM.PDOC ---
ED HPI GENERAL MEDICAL PROBLEM - General Chief Complaint: Genitourinary Problem Stated Complaint: PAIN BURNING WHILE PEEING AND HEMORRHOID Time Seen by Provider: 03/19/20 14:15 - History of Present Illness INITIAL COMMENTS - FREE TEXT/NARRATIVE: History of present illness: [Patient presents with multiple complaints including dysuria vaginal discharge foul-smelling vagina and a piece of something coming out of her is after having anal sex 7 months ago the mass she experiences is painful and tender she says she has some lower abdominal discomfort she denies any fever chills nausea or vomiting nothing makes it better or worse no new sex partners Review of systems: As per history of present illness and below otherwise all systems reviewed and negative. Past medical history: As per history of present illness and as reviewed below otherwise noncontributory. Surgical history: As per history of present illness and as reviewed below otherwise noncontributory. Social history: No reported history of drug or alcohol abuse. Family history: As per history of present illness and as reviewed below otherwise noncontributory. Physical exam: HEENT: Atraumatic, normocephalic, pupils reactive, negative for conjunctival p allor or scleral icterus, mucous membranes moist, throat clear, neck supple, nontender, trachea midline. Lungs: Clear to auscultation, breath sounds equal bilaterally, chest nontender. Heart: S1S2, regular, negative for clicks, rubs, or JVD. Abdomen: Soft, nondistended, nontender. Negative for masses or hepatosplenomegaly. Negative for costovertebral tenderness. Pelvis: Stable nontender. Genitourinary: Deferred. Rectal: Deferred. Extremities: Atraumatic, negative for cords or calf pain. Neurovascular unremarkable. Neuro: Awake, alert, oriented. Cranial nerves II through XII unremarkable. Cereb ellum unremarkable. Motor and sensory unremarkable throughout. Exam nonfocal. Pelvic: No discharge normal external genitalia normal cervix nontender no CMT Rectal: Anal exam demonstrates a hemorrhoid at the 11:30 position is no lesions no masses there no is no tenderness. Diagnostics: [] Therapeutics: [] Impression: [] Plan: Check for UTI GC chlamydia and trichomonas. We will recommend treatments for hemorrhoids. [] Definitive disposition and diagnosis as appropriate pending reevaluation and review of above. rectum Pain Score (Numeric/FACES): 8 - Related Data Allergies Allergy/AdvReac Type Severity Reaction Status Date / Time codeine Allergy Rash Verified 03/19/20 14:16 Home Meds: Home Meds Levothyroxine [Synthroid] 50 mcg PO ACBREAKFAST 06/23/16 [History] Sulfamethoxazole/Trimethoprim [Bactrim Ds Tablet] 1 each PO BID #20 tablet 03/19/20 [Rx] Past Medical History - Past Health History Medical/Surgical History: Denies Medical/Surgical History HEENT History: Reports: None Cardiovascular History: Reports: None Respiratory History: Reports: None Gastrointestinal History: Reports: Other (See Below) Other Gastrointestinal History: gallstones Genitourinary History: Reports: None COMMUNITY HEALTH REPRESENTATIVE History: Reports: Other (See Below) Other COMMUNITY HEALTH REPRESENTATIVE History: tubal ligation Musculoskeletal History: Reports: None Neurological History: Reports: None Psychiatric History: Reports: Anxiety Endocrine/Metabolic History: Reports: Hypoparathyroidism Hematologic History: Reports: None Immunologic History: Reports: None Oncologic (Cancer) History: Reports: None Dermatologic History: Reports: None - Infectious Disease History Infectious Disease History: Reports: Chicken Pox, Hepatitis B - Past Surgical History Head Surgeries/Procedures: Reports: None HEENT Surgical History: Reports: None Cardiovascular Surgical History: Reports: None Respiratory Surgical History: Reports: None GI Surgical History: Reports: Cholecystectomy Female Surgical History: Reports: None Endocrine Surgical History: Reports: None Neurological Surgical History: Reports: None Musculoskeletal Surgical History: Reports: None Oncologic Surgical History: Reports: None Dermatological Surgical History: Reports: None Social & Family History - Family History Family Medical History: Noncontributory - Tobacco Use Smoking Status *Q: Never Smoker Second Hand Smoke Exposure: No - Caffeine Use Caffeine Use: Reports: Energy Drinks - Recreational Drug Use Recreational Drug Use: No ED ROS GENERAL - Review of Systems Review Of Systems: See Below ED EXAM, GENERAL - Physical Exam Exam: See Below Course - Vital Signs Text/Narrative:: Has a positive UA we will treat her with Bactrim and metronidazole discharged home recommend topical treatments for her hemorrhoids including additional Metamucil or fiber supplements in her diet. Follow-up with primary care Last Recorded V/S: Last Vital Signs Temp 35.9 C L 03/19/20 14:12 Pulse 75 03/19/20 14:12 Resp 18 03/19/20 14:12 BP 145/85 H 03/19/20 14:12 Pulse Ox 100 03/19/20 14:12 - Orders/Labs/Meds Orders: Active Orders 24 hr Category Date Time Status CHLAMYDIA AND GONORRHEA BY TMA Stat Lab 03/19/20 14:29 Ordered HCG QUALITATIVE,URINE [URCHEM] Stat Lab 03/19/20 14:31 Ordered TRICH/SEA/CAND BY DNA PROBE [MOLEC] Stat Lab 03/19/20 14:30 Ordered UA RFX NALDO AND CULT IF INDIC [URIN] Stat Lab 03/19/20 14:29 Ordered Departure - Departure Time of Disposition: 14:44 Disposition: Home, Self-Care 01 Condition: Good Clinical Impression: UTI, Urinary tract infectious disease Hemorrhoid Qualifiers: Hemorrhoid type: unspecified Qualified Code(s): K64.9 - Unspecified hemorrhoids - Discharge Information *PRESCRIPTION DRUG MONITORING PROGRAM REVIEWED*: Not Applicable *COPY OF PRESCRIPTION DRUG MONITORING REPORT IN PATIENT TED: Not Applicable Instructions: Urinary Tract Infection, Adult, Hemorrhoids, [id number] Referrals: Nina Molina DO [Primary Care Provider] - Additional Instructions: The following information is given to patients seen in the emergency department who are being discharged to home. This information is to outline your options for follow-up care. We provide all patients seen in our emergency department with a follow-up referral. The need for follow-up, as well as the timing and circumstances, are variable depending upon the specifics of your emergency department visit. If you don't have a primary care physician on staff, we will provide you with a referral. We always advise you to contact your personal physician following an emergency department visit to inform them of the circumstance of the visit and for follow-up with them and/or the need for any referrals to a consulting specialist. The emergency department will also refer you to a specialist when appropriate. This referral assures that you have the opportunity for follow-up care with a specialist. All of these measure are taken in an effort to provide you with optimal care, which includes your follow-up. Under all circumstances we always encourage you to contact your private physician who remains a resource for coordinating your care. When calling for follow-up care, please make the office aware that this follow-up is from your re cent emergency room visit. If for any reason you are refused follow-up, please contact the [facility] Emergency Department at and asked to speak to the emergency department charge nurse. [facility] - [facility] [address] [place] [address] [facility] [address] [place] [address] Sepsis Event Note (ED) - Evaluation Sepsis Screening Result: No Definite Risk - Focused Exam Vital Signs: Vital Signs Temp Pulse Resp BP Pulse Ox 03/19/20 14:12 35.9 C L 75 18 145/85 H 100 - My Orders Last 24 Hours: My Active Orders 03/19/20 14:29 CHLAMYDIA AND GONORRHEA BY TMA Stat UA RFX NALDO AND CULT IF INDIC [URIN] Stat 03/19/20 14:30 TRICH/SEA/CAND BY DNA PROBE [MOLEC] Stat 03/19/20 14:31 HCG QUALITATIVE,URINE [URCHEM] Stat - Assessment/Plan Last 24 Hours: My Active Orders 03/19/20 14:29 CHLAMYDIA AND GONORRHEA BY TMA Stat UA RFX NALDO AND CULT IF INDIC [URIN] Stat 03/19/20 14:30 TRICH/SEA/CAND BY DNA PROBE [MOLEC] Stat 03/19/20 14:31 HCG QUALITATIVE,URINE [URCHEM] Stat
== END 2020-03-19 15:42 | disposition home or self-care (01) ==
LOC: MW.ED 14:02
DX: K64.9 Unspecified hemorrhoids (principal); N39.0 Urinary tract infection, site not specified; E21.3 Hyperparathyroidism, unspecified; Z79.899 Other long term (current) drug therapy
CPT/HCPCS: 81001; 81025; 87086; 87088; 87186; 87480; 87491; 87510; 87591; 87660; 99283

== ENCOUNTER 2020-04-16 21:39 | Emergency (ER) | payer MEDICAID ==
--- NOTE | 2020-04-16 22:08 | EDM.PDOC ---
ED HPI GENERAL MEDICAL PROBLEM - General Chief Complaint: Genitourinary Problem Stated Complaint: VAGINAL BURNING Time Seen by Provider: 04/16/20 21:45 Source of Information: Reports: Patient History Limitations: Reports: No Limitations - History of Present Illness INITIAL COMMENTS - FREE TEXT/NARRATIVE: 50-year-old female with history of UTI, acute vaginosis, gonorrhea and chlamydia presents with dysuria, urinary frequency, burning with urination for 2 days. She also notes brownish discharge and pain with intercourse, and mild itching and left flank nonradiating pain. She denies fever, chills, abdominal pain. She is sexually active with one partner with no protection. LMP = 1-week ago. ROS: A 10-point review of systems, other than pertinent positives and negatives as stated per HPI, is otherwise negative Past medical history: No additional pertinent history Past Surgical history: No additional pertinent history Social history: No additional pertinent history Family history: No additional pertinent history PHYSICAL EXAM General: AOx4, GCS = 15, No distress HEENT: dry mucous membrane Neck: supple, no meningismus, no Kernig or Brudzinski Cardiac: S1S2 RRR Respiratory: CTAB, no crackles or rales, no wheezing Abdomen: Soft, nontender, no rebound or guarding, nondistended, no pulsatile mass. Back: nontender Musculoskeletal: NVI distally, no deformity Neuro: No focal deficits, CN 2 - 12 WNL. left flank Pain Score (Numeric/FACES): 7 - Related Data Allergies Allergy/AdvReac Type Severity Reaction Status Date / Time codeine Allergy Rash Verified 04/16/20 21:50 latex Allergy Rash Verified 04/16/20 21:50 Home Meds: Home Meds Levothyroxine [Synthroid] 50 mcg PO ACBREAKFAST 06/23/16 [History] Nitrofurantoin Monohyd/M-Cryst [Macrobid 100 mg Capsule] 100 mg PO BID #10 capsule 04/17/20 [Rx] Past Medical History - Past Health History Medical/Surgical History: Denies Medical/Surgical History HEENT History: Reports: None Cardiovascular History: Reports: None Respiratory History: Reports: None Gastrointestinal History: Reports: Other (See Below) Other Gastrointestinal History: gallstones Genitourinary History: Reports: None HIGHWAY MAINTAINER History: Reports: Other (See Below) Other HIGHWAY MAINTAINER History: tubal ligation Musculoskeletal History: Reports: None Neurological History: Reports: None Psychiatric History: Reports: Anxiety Endocrine/Metabolic History: Reports: Hypoparathyroidism Insulin Pump Model and Environment Artist: None Hematologic History: Reports: None Immunologic History: Reports: None Oncologic (Cancer) History: Reports: None Dermatologic History: Reports: None - Infectious Disease History Infectious Disease History: Reports: None - Past Surgical History Head Surgeries/Procedures: Reports: None HEENT Surgical History: Reports: None Cardiovascular Surgical History: Reports: None Respiratory Surgical History: Reports: None GI Surgical History: Reports: Cholecystectomy Female Surgical History: Reports: None Endocrine Surgical History: Reports: None Neurological Surgical History: Reports: None Musculoskeletal Surgical History: Reports: None Oncologic Surgical History: Reports: None Dermatological Surgical History: Reports: None Social & Family History - Family History Family Medical History: Noncontributory - Tobacco Use Smoking Status *Q: Never Smoker - Caffeine Use Caffeine Use: Reports: None - Recreational Drug Use Recreational Drug Use: No ED ROS GENERAL - Review of Systems Review Of Systems: Comprehensive ROS is negative, except as noted in HPI. ED EXAM, RENAL/ - Physical Exam Exam: See Below (see dictation) Course - Vital Signs Last Recorded V/S: Last Vital Signs Temp 96.8 F L 04/16/20 21:51 Pulse 78 04/16/20 21:51 Resp 18 04/16/20 21:51 BP 129/76 04/16/20 21:51 Pulse Ox 98 04/16/20 21:51 - Orders/Labs/Meds Orders: Active Orders 24 hr Category Date Time Status CHLAMYDIA AND GONORRHEA BY TMA Stat Lab 04/16/20 22:10 Received Labs: Laboratory Tests 04/16/20 04/16/20 04/16/20 Range/Units 21:55 21:55 22:10 Urine Color YELLOW Urine Appearance CLEAR Urine pH 5.0 (5.0-8.0) Ur Specific Blanchard 1.010 (1.001-1.035) Urine Protein NEGATIVE (NEGATIVE) mg/dL Urine Glucose (UA) NEGATIVE (NEGATIVE) mg/dL Urine Ketones NEGATIVE (NEGATIVE) mg/dL Urine Occult Blood NEGATIVE (NEGATIVE) Urine Nitrite NEGATIVE (NEGATIVE) Urine Bilirubin NEGATIVE (NEGATIVE) Urine Urobilinogen 0.2 (<2.0) EU/dL Ur Leukocyte Esterase TRACE H (NEGATIVE) Urine RBC 0-1 (0-2/HPF) Urine WBC 2-4 (0-5/HPF) Ur Epithelial Cells FEW (NONE-FEW) Urine Bacteria RARE (NEGATIVE) Urine HCG, Qual NEGATIVE (NEGATIVE) Brianda species DNA NEGATIVE (NEGATIVE) Gardnerella DNA Probe NEGATIVE (NEGATIVE) Trichomonas DNA Probe NEGATIVE (NEGATIVE) - Re-Assessments/Exams Free Text/Narrative Re-Assessment/Exam: 04/17/20 00:07 She is stable for discharge. I performed a repeat exam and did not appreciate new abnormal findings. Patient exhibits normal vital signs and has a normal gait. I advised the patient to return to the ER for reevaluation if symptoms worsened, including fever, worsening pain, or any other worrisome symptoms. I instructed the patient to follow up with their PCP within 2-3 days. Departure - Departure Time of Disposition: 00:07 Disposition: Home, Self-Care 01 Condition: Good Clinical Impression: UTI (urinary tract infection) Qualifiers: Urinary tract infection type: site unspecified Hematuria presence: with hematuria Qualified Code(s): N39.0 - Urinary tract infection, site not specified - Discharge Information *PRESCRIPTION DRUG MONITORING PROGRAM REVIEWED*: Not Applicable *COPY OF PRESCRIPTION DRUG MONITORING REPORT IN PATIENT TED: Not Applicable Prescriptions: Nitrofurantoin Monohyd/M-Cryst [Macrobid 100 mg Capsule] 100 mg PO BID #10 capsule Instructions: Urinary Tract Infection, Adult, Antibiotic Medicine, Adult Referrals: Nina Molina DO [Primary Care Provider] - 1 Week Forms: ED Department Discharge Additional Instructions: The following information is given to patients seen in the emergency department who are being discharged to home. This information is to outline your options for follow-up care. We provide all patients seen in our emergency department with a follow-up referral. The need for follow-up, as well as the timing and circumstances, are variable depending upon the specifics of your emergency department visit. If you don't have a primary care physician on staff, we will provide you with a referral. We always advise you to contact your personal physician following an emergency department visit to inform them of the circumstance of the visit and for follow-up with them and/or the need for any referrals to a consulting specialist. The emergency department will also refer you to a specialist when appropriate. This referral assures that you have the opportunity for follow-up care with a specialist. All of these measure are taken in an effort to provide you with optimal care, which includes your follow-up. Under all circumstances we always encourage you to contact your private physician who remains a resource for coordinating your care. When calling for follow-up care, please make the office aware that this follow-up is from your recent emergency room visit. If for any reason you are refused follow-up, please contact the [facility] Emergency Department at and asked to speak to the emergency department charge nurse. If you do not have a primary care doctor, please follow up with the clinics below within 3-5 days. [facility] - Primary [facility] [address] [place] [address] [id number] [address] [address] Sepsis Event Note (ED) - Evaluation Sepsis Screening Result: No Definite Risk - Focused Exam Vital Signs: Vital Signs Temp Pulse Resp BP Pulse Ox 04/16/20 21:51 96.8 F L 78 18 129/76 98 - My Orders Last 24 Hours: My Active Orders 04/16/20 22:10 CHLAMYDIA AND GONORRHEA BY TMA Stat - Assessment/Plan Last 24 Hours: My Active Orders 04/16/20 22:10 CHLAMYDIA AND GONORRHEA BY TMA Stat
[2020-04-17 02:22] VITALS: BP 132/83; PULSE 64
== END 2020-04-17 00:20 | disposition home or self-care (01) ==
LOC: MW.ED 21:39
DX: N39.0 Urinary tract infection, site not specified (principal); R31.9 Hematuria, unspecified; E20.9 Hypoparathyroidism, unspecified; Z88.5 Allergy status to narcotic agent; Z91.040 Latex allergy status; Z79.899 Other long term (current) drug therapy; Z90.49 Acquired absence of other specified parts of digestive tract
CPT/HCPCS: 81001; 81025; 87480; 87491; 87510; 87591; 87660; 99282; 99283

== ENCOUNTER 2020-06-17 16:08 | Emergency (ER) | payer MEDICAID ==
[2020-06-17] MEDS ORDERED: Sodium Chloride 0.9% 2.5 ML Syringe FLUSH PRN (16:53)
[2020-06-17] MEDS ORDERED: Sodium Chloride 0.9% 10 ML Syringe FLUSH PRN (16:53)
[2020-06-17 18:00] LABS: BLOOD UREA NITROGEN,BUN 16 mg/dL (7.0-18.0); CARBON DIOXIDE,CO2 28.8 mmol/L (21.0-32.0); CHLORIDE,CL 103 mmol/L (98-107); GLUCOSE RANDOM 85 mg/dL (74-106); POTASSIUM,K 3.8 mmol/L (3.5-5.1); SODIUM,NA 140 mmol/L (136-145)
--- NOTE | 2020-06-17 18:30 | EDM.PDOC ---
ED HPI GENERAL MEDICAL PROBLEM - General Chief Complaint: General Stated Complaint: hot flashes/chills Time Seen by Provider: 06/17/20 16:24 Source of Information: Reports: Patient History Limitations: Reports: No Limitations - History of Present Illness INITIAL COMMENTS - FREE TEXT/NARRATIVE: 50-year-old female with history of hypothyroidism presents with 3 weeks of intermittent hot flashes and chills. Patient denies fever, palpitations, sweats, headache, chest pain, shortness of breath, abdominal pain, focal numbness or weakness. She went to see her PCP and she thought she was undergoing menopause. ROS: A 10-point review of systems, other than pertinent positives and negatives as stated per HPI, is otherwise negative Past medical history: No additional pertinent history Past Surgical history: No additional pertinent history Social history: No additional pertinent history Family history: No additional pertinent history PHYSICAL EXAM General: AOx4, GCS = 15, No distress HEENT: dry mucous membrane Neck: supple, no meningismus, no Kernig or Brudzinski Cardiac: S1S2 RRR Respiratory: CTAB, no crackles or rales, no wheezing Abdomen: Soft, nontender, no rebound or guarding, nondistended, no pulsatile mass. Back: nontender Musculoskeletal: NVI distally, no deformity Neuro: No focal deficits, CN 2 - 12 WNL. 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: Reports: Other (See Below) Other AERONAUTICAL ENGINEERING 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: tubal ligation Musculoskeletal History: Reports: None Neurological History: Reports: None Psychiatric History: Reports: Anxiety Endocrine/Metabolic History: Reports: Hypoparathyroidism Insulin Pump Model and Psychology Professor: None Hematologic History: Reports: None Immunologic History: Reports: None Oncologic (Cancer) History: Reports: None Dermatologic History: Reports: None - Infectious Disease History Infectious Disease History: Reports: Chicken Pox - Past Surgical History Head Surgeries/Procedures: Reports: None HEENT Surgical History: Reports: None Cardiovascular Surgical History: Reports: None Respiratory Surgical History: Reports: None GI Surgical History: Reports: Cholecystectomy Female Surgical History: Reports: None Endocrine Surgical History: Reports: None Neurological Surgical History: Reports: None Musculoskeletal Surgical History: Reports: None Oncologic Surgical History: Reports: None Dermatological Surgical History: Reports: None Social & Family History - Family History Family Medical History: Noncontributory - Tobacco Use Smoking Status *Q: Former Smoker Used Tobacco, but Quit: Yes Month/Year Tobacco Last Used: 2008 - Caffeine Use Caffeine Use: Reports: Energy Drinks - Recreational Drug Use Recreational Drug Use: No ED ROS GENERAL - Review of Systems Review Of Systems: Comprehensive ROS is negative, except as noted in HPI. (see dictation) ED EXAM, GENERAL - Physical Exam Exam: See Below (see dictation) Course - Vital Signs Last Recorded V/S: Last Vital Signs Temp 96.7 F L 06/17/20 16:18 Pulse 77 06/17/20 16:18 Resp 16 06/17/20 16:18 BP 152/85 H 06/17/20 16:18 Pulse Ox 100 06/17/20 16:18 - Orders/Labs/Meds Orders: Active Orders 24 hr Category Date Time Status EKG Documentation Completion [RC] STAT Care 06/17/20 16:55 Active Sodium Chloride 0.9% [Saline Flush] Med 06/17/20 16:53 Active 10 ml FLUSH ASDIRECTED PRN Sodium Chloride 0.9% [Saline Flush] Med 06/17/20 16:53 Active 2.5 ml FLUSH ASDIRECTED PRN Saline Lock Insert [OM.PC] Stat Oth 06/17/20 16:54 Ordered Medication Orders Sodium Chloride (Saline Flush) 10 ml FLUSH ASDIRECTED PRN PRN Reason: Keep Vein Open Sodium Chloride (Saline Flush) 2.5 ml FLUSH ASDIRECTED PRN PRN Reason: Keep Vein Open Labs: Laboratory Tests 06/17/20 06/17/20 06/17/20 Range/Units 16:29 17:19 17:19 WBC 10.63 (4.0-11.0) K/uL RBC 4.78 (4.30-5.90) M/uL Hgb 11.4 L (12.0-16.0) g/dL Hct 36.3 (36.0-46.0) % MCV 75.9 L (80.0-98.0) fL MCH 23.8 L (27.0-32.0) pg MCHC 31.4 (31.0-37.0) g/dL RDW Std Deviation 42.3 (28.0-62.0) fl RDW Coeff of Brionna 15 (11.0-15.0) % Plt Count 324 (150-400) K/uL MPV 10.10 (7.40-12.00) fL Neut % (Auto) 55.0 (48.0-80.0) % Lymph % (Auto) 36.6 (16.0-40.0) % Miner % (Auto) 5.4 (0.0-15.0) % Eos % (Auto) 2.7 (0.0-7.0) % Baso % (Auto) 0.3 (0.0-1.5) % Neut # (Auto) 5.9 H (1.4-5.7) K/uL Lymph # (Auto) 3.9 H (0.6-2.4) K/uL Miner # (Auto) 0.6 (0.0-0.8) K/uL Eos # (Auto) 0.3 (0.0-0.7) K/uL Baso # (Auto) 0.0 (0.0-0.1) K/uL Nucleated RBC % 0.0 /100WBC Nucleated RBCs # 0 K/uL APTT (18.6-31.3) SEC Sodium 140 (136-145) mmol/L Potassium 3.8 (3.5-5.1) mmol/L Chloride 103 (98-107) mmol/L Carbon Dioxide 28.8 (21.0-32.0) mmol/L BUN 16 (7.0-18.0) mg/dL Creatinine 1.2 H (0.6-1.0) mg/dL Est Cr Clr Drug Dosing 51.03 mL/min Estimated GFR (MDRD) 57.9 ml/min Glucose 85 (74-106) mg/dL Calcium 8.9 (8.5-10.1) mg/dL Phosphorus 4.1 (2.6-4.7) mg/dL Magnesium 1.9 (1.8-2.4) mg/dL Total Bilirubin 0.2 (0.2-1.0) mg/dL AST 15 (15-37) IU/L ALT 22 (14-63) IU/L Alkaline Phosphatase 121 H (46-116) U/L Troponin I < 0.050 (0.000-0.056) ng/mL Total Protein 7.5 (6.4-8.2) g/dL Albumin 3.5 (3.4-5.0) g/dL Globulin 4.0 (2.6-4.0) g/dL Albumin/Globulin Ratio 0.9 (0.9-1.6) Free T4 0.97 (0.76-1.46) ng/dL TSH 3rd Generation 1.93 (0.36-3.74) uIU/mL Urine Color YELLOW Urine Appearance CLEAR Urine pH 6.0 (5.0-8.0) Ur Specific [place] 1.025 (1.001-1.035) Urine Protein NEGATIVE (NEGATIVE) mg/dL Urine Glucose (UA) NEGATIVE (NEGATIVE) mg/dL Urine Ketones NEGATIVE (NEGATIVE) mg/dL Urine Occult Blood NEGATIVE (NEGATIVE) Urine Nitrite NEGATIVE (NEGATIVE) Urine Bilirubin NEGATIVE (NEGATIVE) Urine Urobilinogen 0.2 (<2.0) EU/dL Ur Leukocyte Esterase SMALL H (NEGATIVE) Urine RBC 0-2 (0-2/HPF) Urine WBC 0-2 (0-5/HPF) Ur Epithelial Cells FEW (NONE-FEW) Urine Bacteria RARE (NEGATIVE) Urine Mucus LIGHT (NONE-MOD) 06/17/20 Range/Units 17:19 WBC (4.0-11.0) K/uL RBC (4.30-5.90) M/uL Hgb (12.0-16.0) g/dL Hct (36.0-46.0) % MCV (80.0-98.0) fL MCH (27.0-32.0) pg MCHC (31.0-37.0) g/dL RDW Std Deviation (28.0-62.0) fl RDW Coeff of Brionna (11.0-15.0) % Plt Count (150-400) K/uL MPV (7.40-12.00) fL Neut % (Auto) (48.0-80.0) % Lymph % (Auto) (16.0-40.0) % Miner % (Auto) (0.0-15.0) % Eos % (Auto) (0.0-7.0) % Baso % (Auto) (0.0-1.5) % Neut # (Auto) (1.4-5.7) K/uL Lymph # (Auto) (0.6-2.4) K/uL Miner # (Auto) (0.0-0.8) K/uL Eos # (Auto) (0.0-0.7) K/uL Baso # (Auto) (0.0-0.1) K/uL Nucleated RBC % /100WBC Nucleated RBCs # K/uL APTT 26.5 (18.6-31.3) SEC Sodium (136-145) mmol/L Potassium (3.5-5.1) mmol/L Chloride (98-107) mmol/L Carbon Dioxide (21.0-32.0) mmol/L BUN (7.0-18.0) mg/dL Creatinine (0.6-1.0) mg/dL Est Cr Clr Drug Dosing mL/min Estimated GFR (MDRD) ml/min Glucose (74-106) mg/dL Calcium (8.5-10.1) mg/dL Phosphorus (2.6-4.7) mg/dL Magnesium (1.8-2.4) mg/dL Total Bilirubin (0.2-1.0) mg/dL AST (15-37) IU/L ALT (14-63) IU/L Alkaline Phosphatase (46-116) U/L Troponin I (0.000-0.056) ng/mL Total Protein (6.4-8.2) g/dL Albumin (3.4-5.0) g/dL Globulin (2.6-4.0) g/dL Albumin/Globulin Ratio (0.9-1.6) Free T4 (0.76-1.46) ng/dL TSH 3rd Generation (0.36-3.74) uIU/mL Urine Color Urine Appearance Urine pH (5.0-8.0) Ur Specific [place] (1.001-1.035) Urine Protein (NEGATIVE) mg/dL Urine Glucose (UA) (NEGATIVE) mg/dL Urine Ketones (NEGATIVE) mg/dL Urine Occult Blood (NEGATIVE) Urine Nitrite (NEGATIVE) Urine Bilirubin (NEGATIVE) Urine Urobilinogen (<2.0) EU/dL Ur Leukocyte Esterase (NEGATIVE) Urine RBC (0-2/HPF) Urine WBC (0-5/HPF) Ur Epithelial Cells (NONE-FEW) Urine Bacteria (NEGATIVE) Urine Mucus (NONE-MOD) Meds: Medications Generic Name Dose Route Start Last Admin Trade Name Freq PRN Reason Stop Dose Admin Sodium Chloride 10 ml 06/17/20 16:53 Saline Flush FLUSH ASDIRECTED PRN Keep Vein Open Sodium Chloride 2.5 ml 06/17/20 16:53 Saline Flush FLUSH ASDIRECTED PRN Keep Vein Open - Re-Assessments/Exams Free Text/Narrative Re-Assessment/Exam: 06/17/20 18:29 After a long observation in the ER, the patient improved and is currently stable for discharge. I performed a repeat exam and did not appreciate new abnormal findings. Patient exhibits normal vital signs and has a normal gait on road test. I advised the patient to return to the ER for reevaluation if symptoms worsened, including fever, worsening pain, or any other worrisome symptoms. I instructed the patient to follow up with their PCP within 2-3 days. MEDICAL DECISION MAKING: I reviewed the patients past medical records, lab and radiographic findings. I discussed the case with the patient. My differential diagnosis included: Lab work did not demonstrate thyroid abnormalities, her T4 and TSH were unremarkable, her vital signs were unremarkable, no electrolyte abnormalities. No fever or leukocytosis, I do not suspect infectious etiology. Departure - Departure Time of Disposition: 18:30 Disposition: Home, Self-Care 01 Condition: Good Clinical Impression: Hot flashes - Discharge Information *PRESCRIPTION DRUG MONITORING PROGRAM REVIEWED*: Not Applicable *COPY OF PRESCRIPTION DRUG MONITORING REPORT IN PATIENT TED: Not Applicable Referrals: PCP,None [Primary Care Provider] - Additional Instructions: The need for follow-up, as well as the timing and circumstances, are variable depending upon the specifics of your emergency department visit. If you don't have a primary care physician on staff, we will provide you with a referral. We always advise you to contact your personal physician following an emergency department visit to inform them of the circumstance of the visit and for follow-up with them and/or the need for any referrals to a consulting specialist. The emergency department will also refer you to a specialist when appropriate. This referral assures that you have the opportunity for follow-up care with a specialist. All of these measure are taken in an effort to provide you with optimal care, which includes your follow-up. Under all circumstances we always encourage you to contact your private physician who remains a resource for coordinating your care. When calling for follow-up care, please make the office aware that this follow-up is from your recent emergency room visit. If for any reason you are refused follow-up, please contact the [facility] Emergency Department at and asked to speak to the emergency department charge nurse. If you do not have a primary care doctor, please follow up with the clinics below within 3-5 days. [facility] - Primary Care [address] [place] [id number] [facility] [address] [place] [id number] Sepsis Event Note (ED) - Evaluation Sepsis Screening Result: No Definite Risk - Focused Exam Vital Signs: Vital Signs Temp Pulse Resp BP Pulse Ox 06/17/20 16:18 96.7 F L 77 16 152/85 H 100 - My Orders Last 24 Hours: My Active Orders 06/17/20 16:53 Sodium Chloride 0.9% [Saline Flush] 10 ml FLUSH ASDIRECTED PRN Sodium Chloride 0.9% [Saline Flush] 2.5 ml FLUSH ASDIRECTED PRN 06/17/20 16:54 Saline Lock Insert [OM.PC] Stat 06/17/20 16:55 EKG Documentation Completion [RC] STAT - Assessment/Plan Last 24 Hours: My Active Orders 06/17/20 16:53 Sodium Chloride 0.9% [Saline Flush] 10 ml FLUSH ASDIRECTED PRN Sodium Chloride 0.9% [Saline Flush] 2.5 ml FLUSH ASDIRECTED PRN 06/17/20 16:54 Saline Lock Insert [OM.PC] Stat 06/17/20 16:55 EKG Documentation Completion [RC] STAT
[2020-06-17 18:56] VITALS: BP 122/77; PULSE 74
== END 2020-06-17 18:55 | disposition home or self-care (01) ==
LOC: MW.ED 16:08
DX: R23.2 Flushing (principal); E03.9 Hypothyroidism, unspecified; Z88.5 Allergy status to narcotic agent; Z91.040 Latex allergy status; Z79.899 Other long term (current) drug therapy
CPT/HCPCS: 36415; 80053; 81001; 83735; 84100; 84439; 84443; 84484; 85025; 85730; 93005; 99283-25

== ENCOUNTER 2020-12-09 16:34 | Emergency (ER) | payer SELFPAY ==
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
[2020-12-09] MEDS ORDERED: LORazepam 1 MG Tab PO ONE (19:40)
[2020-12-09 19:51] VITALS: BP 135/72; PULSE 75
[2020-12-12 12:02] LABS: C.TRACHOMATIS BY TMA Negative (Negative); N.GONORRHOEAE BY TMA Negative (Negative)
== END 2020-12-09 19:51 | disposition home or self-care (01) ==
LOC: MW.ED 16:34
DX: N76.0 Acute vaginitis (principal); B96.89 Other specified bacterial agents as the cause of diseases classified elsewhere; E20.9 Hypoparathyroidism, unspecified; Z88.5 Allergy status to narcotic agent; Z91.040 Latex allergy status; Z79.899 Other long term (current) drug therapy
CPT/HCPCS: 36415; 81001; 84443; 87480; 87491; 87510; 87591; 87660; 99284; A9270; 99283

== ENCOUNTER 2021-06-10 20:40 | Emergency (ER) | payer MEDICAID, SELFPAY ==
--- NOTE | 2021-06-10 21:14 | EDM.PDOC ---
ED HPI GENERAL MEDICAL PROBLEM - General Chief Complaint: Lower Extremity Injury/Pain Stated Complaint: PAIN IN ARMS AND LEGS Time Seen by Provider: 06/10/21 20:59 - History of Present Illness INITIAL COMMENTS - FREE TEXT/NARRATIVE: 51-year-old female presents complaining of joint pain and paresthesias since the end of June. Patient states that symptoms started after her first Covid vaccine shot. She states she has significant joint pain in the right ankle, bilateral knees and arms. It is worse at night when she tries to go to sleep. She has likewise had intermittent arm and leg paresthesias throughout that time. No fevers. No history of arthritis. Patient denies headache or history of cancer. No slurred speech double vision arm or leg weakness. Patient has tried ibuprofen for the discomfort. Worse with moving and trying to get up. He has some discomfort behind her left knee. No history of blood clot. No unilateral leg swelling. No recent travel, injury, cancer, surgery. No smoking or control bilateral lower legs Pain Score (Numeric/FACES): 10 - Related Data Allergies Allergy/AdvReac Type Severity Reaction Status Date / Time codeine Allergy Rash Verified 06/10/21 21:11 latex Allergy Rash Verified 06/10/21 21:11 Home Meds: Home Meds Levothyroxine [Synthroid] 50 mcg PO ACBREAKFAST 06/23/16 [History] Past Medical History - Past Health History Medical/Surgical History: Denies Medical/Surgical History HEENT History: Reports: None Cardiovascular History: Reports: None Respiratory History: Reports: None Gastrointestinal History: Reports: Other (See Below) Other Gastrointestinal History: gallstones Genitourinary History: Reports: None DRY CHAIN OPERATOR History: Reports: Other (See Below) Other DRY CHAIN OPERATOR History: tubal ligation Musculoskeletal History: Reports: None Neurological History: Reports: None Psychiatric History: Reports: Anxiety Endocrine/Metabolic History: Reports: Hypoparathyroidism Insulin Pump Model and Macaroni Press Operator: None Hematologic History: Reports: None Immunologic History: Reports: None Oncologic (Cancer) History: Reports: None Dermatologic History: Reports: None - Infectious Disease History Infectious Disease History: Reports: Chicken Pox - Past Surgical History Head Surgeries/Procedures: Reports: None HEENT Surgical History: Reports: None Cardiovascular Surgical History: Reports: None Respiratory Surgical History: Reports: None GI Surgical History: Reports: Cholecystectomy Female Surgical History: Reports: None Endocrine Surgical History: Reports: None Neurological Surgical History: Reports: None Musculoskeletal Surgical History: Reports: None Oncologic Surgical History: Reports: None Dermatological Surgical History: Reports: None Social & Family History - Family History Family Medical History: No Pertinent Family History - Caffeine Use Caffeine Use: Reports: None Review of Systems - Review of Systems Review Of Systems: See Below Constitutional: Denies: Chills, Fever Respiratory: Denies: Shortness of Breath, Cough Cardiovascular: Denies: Chest Pain GI/Abdominal: Denies: Abdominal Pain, Diarrhea, Nausea, Vomiting Musculoskeletal: Reports: Arm Pain, Leg Pain Skin: Denies: Rash Neurological: Reports: Numbness Psychiatric: Reports: No Symptoms ED EXAM, GENERAL - Physical Exam Exam: See Below Free Text/Narrative:: CONSTITUTIONAL: well appearing in no acute distress SKIN: Warm, dry, and intact without rash HENT: Normocephalic, atraumatic. No enlarged or tender thyroid PULMONARY: clear to ausculation bilaterally. No rales, rhonchi, wheezing CARDIOVASCULAR: regular rate, No murmur, rubs, or gallops GASTROINTESTINAL: soft, nondistended, nontender NEUROLOGIC: normal speech, II-XII intact. light touch/5/5 power equal and symmetric in upper and lower extremities without deficit MUSCULOSKELETAL: No limb swelling or edema. Good full range of motion at ankles and knees and elbows and wrists with full range of motion without deficit. No erythema or warmth to the joints PSYCHIATRIC: normal mood and affect Course - Vital Signs Text/Narrative:: Differential diagnosis: Vaccination side effect, electrolyte abnormalities, SIDE STAPLER pathology, systemic arthropathy, infection, thyroid, other Patient presents as outlined above. Laboratory work-up is unrevealing. The patient is well-appearing nontoxic with a nonfocal neurologic exam. Patient was having some discomfort behind her left knee so ultrasound will be ordered in the morning to rule out DVT otherwise copies of the patient's laboratory work-up will be given to the patient so she can follow-up with a primary care doctor for continued treatment and management. Patient given good return precautions Last Recorded V/S: Last Vital Signs Temp 35.9 C L 06/10/21 21:00 Pulse 72 06/10/21 21:00 Resp 18 06/10/21 21:00 BP 142/61 H 06/10/21 21:00 Pulse Ox 97 06/10/21 21:00 - Orders/Labs/Meds Labs: Laboratory Tests 06/10/21 06/10/21 06/10/21 Range/Units 21:24 21:24 21:24 WBC 9.29 (4.0-11.0) K/uL RBC 4.70 (4.30-5.90) M/uL Hgb 11.0 L (12.0-16.0) g/dL Hct 34.8 L (36.0-46.0) % MCV 74.0 L (80.0-98.0) fL MCH 23.4 L (27.0-32.0) pg MCHC 31.6 (31.0-37.0) g/dL RDW Std Deviation 43.6 (28.0-62.0) fl RDW Coeff of Brionna 16 H (11.0-15.0) % Plt Count 311 (150-400) K/uL MPV 10.00 (7.40-12.00) fL Neut % (Auto) 52.1 (48.0-80.0) % Lymph % (Auto) 40.6 H (16.0-40.0) % [place] % (Auto) 4.6 (0.0-15.0) % Eos % (Auto) 2.5 (0.0-7.0) % Baso % (Auto) 0.2 (0.0-1.5) % Neut # (Auto) 4.8 (1.4-5.7) K/uL Lymph # (Auto) 3.8 H (0.6-2.4) K/uL [place] # (Auto) 0.4 (0.0-0.8) K/uL Eos # (Auto) 0.2 (0.0-0.7) K/uL Baso # (Auto) 0.0 (0.0-0.1) K/uL Nucleated RBC % 0.0 /100WBC Nucleated RBCs # 0 K/uL APTT 26.0 (18.6-31.3) SEC Sodium 140 (136-145) mmol/L Potassium 3.6 (3.5-5.1) mmol/L Chloride 102 (98-107) mmol/L Carbon Dioxide 30.0 (21.0-32.0) mmol/L BUN 9 (7.0-18.0) mg/dL Creatinine 1.0 (0.6-1.0) mg/dL Est Cr Clr Drug Dosing TNP Estimated GFR (MDRD) 58.7 ml/min Glucose 142 H (74-106) mg/dL Calcium 8.7 (8.5-10.1) mg/dL Total Bilirubin 0.2 (0.2-1.0) mg/dL AST 17 (15-37) IU/L ALT 21 (14-63) IU/L Alkaline Phosphatase 116 (46-116) U/L Total Protein 7.0 (6.4-8.2) g/dL Albumin 3.4 (3.4-5.0) g/dL Globulin 3.6 (2.6-4.0) g/dL Albumin/Globulin Ratio 0.9 (0.9-1.6) TSH, Ultra Sensitive 3.54 (0.36-3.74) uIU/mL Departure - Departure Time of Disposition: 23:22 Disposition: Home, Self-Care 01 Condition: Good Clinical Impression: Joint pain - Discharge Information Instructions: Joint Pain Referrals: Sonja Lugo PA [Primary Care Provider] - Forms: ED Department Discharge Additional Instructions: Return for fevers, arm or leg weakness, slurred speech double vision, headache, change or worsening condition. Follow-up tomorrow morning for ultrasound to rule out blood clot. Otherwise take laboratory work-up and follow-up with the primary care doctor in the next couple of days for continued treatment management and evaluations Sepsis Event Note (ED) - Focused Exam Vital Signs: Vital Signs Temp Pulse Resp BP Pulse Ox 06/10/21 21:00 35.9 C L 72 18 142/61 H 97
[2021-06-10 22:23] LABS: BLOOD UREA NITROGEN,BUN 9 mg/dL (7.0-18.0); CHLORIDE,CL 102 mmol/L (98-107); GLUCOSE RANDOM 142 mg/dL (74-106); POTASSIUM,K 3.6 mmol/L (3.5-5.1); SODIUM,NA 140 mmol/L (136-145)
[2021-06-10 23:55] VITALS: BP 152/92; PULSE 73
== END 2021-06-10 23:35 | disposition home or self-care (01) ==
LOC: MW.ED 20:40
DX: M25.571 Pain in right ankle and joints of right foot (principal); M25.562 Pain in left knee; M25.561 Pain in right knee; E03.9 Hypothyroidism, unspecified; Z88.5 Allergy status to narcotic agent; Z91.040 Latex allergy status; Z79.899 Other long term (current) drug therapy
CPT/HCPCS: 36415; 80053; 84443; 85025; 85730; 99284

== ENCOUNTER 2021-10-08 10:03 | Emergency (ER) | payer SELFPAY ==
[2021-10-08] MEDS ORDERED: Ketorolac 30 MG/ML SDV IVPUSH ONE (10:27)
[2021-10-08] MEDS ORDERED: Sodium Chloride 0.9% 2.5 ML Syringe FLUSH PRN (10:27)
[2021-10-08] MEDS ORDERED: Sodium Chloride 0.9% 1,000 ML IV ONE (10:27)
[2021-10-08] MEDS ORDERED: Ondansetron 4 MG/2 ML SDV IVPUSH ONE (10:27)
[2021-10-08] MEDS ORDERED: Sodium Chloride 0.9% 10 ML Syringe FLUSH PRN (10:27)
[2021-10-08 12:07] LABS: CARBON DIOXIDE,CO2 27.6 mmol/L (21.0-32.0); POTASSIUM,K 3.6 mmol/L (3.5-5.1)
[2021-10-08 12:19] LABS: CORONAVIRUS COVID-19 NAA POSITIVE (NEGATIVE); INFLUENZA A NAA NEGATIVE (NEGATIVE); INFLUENZA B NAA NEGATIVE (NEGATIVE)
[2021-10-08 12:56] VITALS: BP 143/73; PULSE 78
== END 2021-10-08 13:06 | disposition home or self-care (01) ==
LOC: MW.ED 10:03
DX: U07.1 COVID-19 (principal); E03.9 Hypothyroidism, unspecified; Z88.5 Allergy status to narcotic agent; Z91.040 Latex allergy status; Z79.899 Other long term (current) drug therapy
CPT/HCPCS: 0240U; 36415; 71045; 80053; 81003; 85025; 96374; 96375; 99284; J1885; J2405; J7030

== ENCOUNTER 2021-12-06 18:36 | Emergency (ER) | payer SELFPAY ==
[2021-12-06] MEDS ORDERED: Alum Hydro/Mag Hydro/Simeth XS 15 ML, Metoclopramide 5 MG, Lidocaine 2% 5 ML PO ONE ×3 (19:06)
[2021-12-06] MEDS ORDERED: Ondansetron 4 MG Tab.DIS PO ONE (19:06)
[2021-12-06 21:09] LABS: CARBON DIOXIDE,CO2 28.9 mmol/L (21.0-32.0); ESTIMATED GFR 47.6 ml/min; POTASSIUM,K 3.4 mmol/L (3.5-5.1)
[2021-12-06 21:39] VITALS: BP 176/85; PULSE 70
== END 2021-12-06 21:37 | disposition home or self-care (01) ==
LOC: MW.ED 18:36
DX: R11.2 Nausea with vomiting, unspecified (principal); R12 Heartburn; E03.9 Hypothyroidism, unspecified; Z88.5 Allergy status to narcotic agent; Z86.16 Personal history of COVID-19; Z91.040 Latex allergy status; Z79.899 Other long term (current) drug therapy
CPT/HCPCS: 36415; 80053; 81001; 82947; 83690; 84703; 85025; 99284; A9270; 99283

== ENCOUNTER 2022-03-11 20:21 | Emergency (ER) | payer SELFPAY ==
[2022-03-11 21:01] VITALS: BP 142/86; PULSE 86
== END 2022-03-11 21:01 | disposition home or self-care (01) ==
LOC: MW.ED 20:21
DX: L55.9 Sunburn, unspecified (principal); L30.9 Dermatitis, unspecified; E03.9 Hypothyroidism, unspecified; Z88.5 Allergy status to narcotic agent; Z91.048 Other nonmedicinal substance allergy status; Z79.899 Other long term (current) drug therapy
CPT/HCPCS: 99282; 99283

== ENCOUNTER 2022-04-27 18:04 | Emergency (ER) | payer SELFPAY ==
[2022-04-28 00:41] VITALS: BP 167/96; PULSE 69
== END 2022-04-27 19:39 | disposition home or self-care (01) ==
LOC: MW.ED 18:04
DX: E11.40 Type 2 diabetes mellitus with diabetic neuropathy, unspecified (principal); E03.9 Hypothyroidism, unspecified; Z88.5 Allergy status to narcotic agent; Z91.040 Latex allergy status; Z79.899 Other long term (current) drug therapy; Z79.84 Long term (current) use of oral hypoglycemic drugs; Z86.16 Personal history of COVID-19
CPT/HCPCS: 87651-QW; 99282; 99283; U0002

== ENCOUNTER 2022-05-02 15:05 | Emergency (ER) | payer SELFPAY ==
[2022-05-02 15:25] VITALS: BP 166/104; PULSE 78
[2022-05-02] MEDS ORDERED: predniSONE 20 MG Tab PO ONE (15:36)
[2022-05-02] MEDS ORDERED: hydrOXYzine HCl 25 MG Tab PO ONE (15:37)
== END 2022-05-02 16:02 | disposition home or self-care (01) ==
LOC: MW.ED 15:05
DX: L29.9 Pruritus, unspecified (principal); E03.9 Hypothyroidism, unspecified; E11.9 Type 2 diabetes mellitus without complications; Z88.5 Allergy status to narcotic agent; Z91.040 Latex allergy status; Z79.899 Other long term (current) drug therapy; Z79.84 Long term (current) use of oral hypoglycemic drugs; Z86.16 Personal history of COVID-19; Z90.49 Acquired absence of other specified parts of digestive tract
CPT/HCPCS: 99282; A9270

== ENCOUNTER 2022-11-06 03:40 | Emergency (ER) | payer SELFPAY ==
[2022-11-06] MEDS ORDERED: Ketorolac 30 MG/ML SDV IM ONE (04:14)
[2022-11-06] MEDS ORDERED: Orphenadrine 60 MG/2 ML Inj IM ONE (04:14)
[2022-11-06 04:39] VITALS: BP 134/68; PULSE 77
== END 2022-11-06 04:38 | disposition home or self-care (01) ==
LOC: MW.ED 03:40
DX: S83.412A Sprain of medial collateral ligament of left knee, initial encounter (principal); S76.312A Strain of muscle, fascia and tendon of the posterior muscle group at thigh level, left thigh, initial encounter; E66.01 Morbid (severe) obesity due to excess calories; E11.9 Type 2 diabetes mellitus without complications; E03.9 Hypothyroidism, unspecified; Z88.5 Allergy status to narcotic agent; Z91.040 Latex allergy status; Z86.16 Personal history of COVID-19; Z79.84 Long term (current) use of oral hypoglycemic drugs; Z79.899 Other long term (current) drug therapy; Z68.43 Body mass index [BMI] 50.0-59.9, adult
CPT/HCPCS: 96372; 99283; J1885; J2360

== ENCOUNTER 2022-12-30 15:57 | Emergency (ER) | payer SELFPAY | END 2022-12-30 17:02 | disposition left against medical advice (07) | LOC: MW.ED 15:57 | DX: Z53.21 Procedure and treatment not carried out due to patient leaving prior to being seen by health care provider (principal) ==

== ENCOUNTER 2022-12-31 01:10 | Emergency (ER) | payer OTHER ==
[2022-12-31] MEDS ORDERED: Ondansetron 4 MG/2 ML SDV IVPUSH ONE (02:39)
[2022-12-31] MEDS ORDERED: Ketorolac 30 MG/ML SDV IVPUSH ONE (02:39)
[2022-12-31] MEDS ORDERED: Lactated Ringers 1,000 ML IV SCH (02:45)
[2022-12-31] MEDS ORDERED: Amoxicillin 500 MG Cap PO ONE (02:56)
[2022-12-31 04:06] LABS: CORONAVIRUS COVID-19 NAA NEGATIVE (NEGATIVE); INFLUENZA A NAA NEGATIVE (NEGATIVE); INFLUENZA B NAA NEGATIVE (NEGATIVE); RESPIRATORY SYNCYTIAL VIR NAA NEGATIVE (NEGATIVE)
[2022-12-31] MEDS ORDERED: Potassium Chloride 20 MEQ Tab.ER PO ONE (05:02)
[2022-12-31 05:29] VITALS: BP 142/64; PULSE 76
== END 2022-12-31 05:28 | disposition home or self-care (01) ==
LOC: MW.ED 01:10
DX: H66.91 Otitis media, unspecified, right ear (principal); E87.6 Hypokalemia; E11.9 Type 2 diabetes mellitus without complications; E03.9 Hypothyroidism, unspecified; Z86.16 Personal history of COVID-19; Z88.5 Allergy status to narcotic agent; Z91.040 Latex allergy status; Z79.899 Other long term (current) drug therapy; Z20.822 Contact with and (suspected) exposure to COVID-19
CPT/HCPCS: 0241U; 36415; 80053; 82947; 83690; 83735; 84484; 84702; 85025; 87651-QW; 93005; 93010; 96361; 96374; 96375; 99283-25; 99284; A9270-GY; J1885; J2405; J7120